=== PATIENT | male | born 1995 | race Caucasian/White ===

== ENCOUNTER 2021-05-08 00:40 | Emergency (ER) | payer OTHER ==
[2021-05-08 01:09] VITALS: BP 125/83; PULSE 79; TEMP 99; BMI 32.8
[2021-05-08] MEDS ORDERED: DIPHTH,PERTUSS(ACELL),TET 0.5 ML DISP.SYRIN IM ONE ×2 (03:58→04:09)
== END 2021-05-08 04:16 | disposition home or self-care (01) ==
LOC: JER 00:40
PROC: 0HQGXZZ Repair Left Hand Skin, External Approach (ICD-10-PCS; principal; 2021-05-08)
PROC: 3E0234Z Introduction of Serum, Toxoid and Vaccine into Muscle, Percutaneous Approach (ICD-10-PCS; 2021-05-08)
DX: S61.412A Laceration without foreign body of left hand, initial encounter (principal)
CPT/HCPCS: 12001-25; 90471; 90715; 99284-25

== ENCOUNTER 2024-08-31 14:19 | Inpatient (IN) | payer OTHER ==
[2024-08-31] MEDS: SODIUM CHLORIDE 1,000 ML IV SCH (18:11)
[2024-08-31 18:14] LABS: BASO % 0.6 % (0-2.0); EOS % 3.3 % (0-4.5); HEMATOCRIT 46.1 % (35.4-49); HEMOGLOBIN 15.4 GM/dL (11.7-16.9); LYMPH % 21.2 % (8-40); MCH 29.3 pg (25.7-33.7); MCHC 33.4 g/dl (32.0-35.9); MEAN CELL VOLUME 87.7 fl (80-96); MEAN PLT VOLUME 7.9 fl (7.5-11.1); MONO % 6.1 % (3.8-10.2); NEUT % 68.8 % (42.8-82.8); PLATELET COUNT 239 10^3/uL (134-434); RBC 5.26 M/mm3 (4.00-5.60); RDW 13.4 % (11.9-15.9)
[2024-08-31 18:20] LABS: INR 1.14 (0.83-1.09); PROTHROMBIN TIME (PATIENT) 13.1 SEC (9.7-13.0)
[2024-08-31 18:23] LABS: ACTIVATED PTT 37.2 SECONDS (25.2-36.5)
[2024-08-31 18:41] LABS: POTASSIUM 3.9 mmol/L (3.5-5.1)
[2024-08-31 18:44] LABS: ALBUMIN 4.4 g/dl (3.4-5.0); BLOOD UREA NITROGEN 11.1 mg/dL (7-18); CALCIUM 9.5 mg/dL (8.5-10.1)
[2024-08-31 18:48] LABS: CREATININE 0.7 mg/dL (0.55-1.3)
[2024-08-31 18:49] LABS: BILIRUBIN,TOTAL 0.3 mg/dL (0.2-1)
[2024-08-31 19:32] LABS: HIV INTERPRETATION NEGATIVE (NEGATIVE)
[2024-08-31 23:31] VITALS: BMI 37.8
[2024-09-01 09:22] LABS: EPI CELLS 1 /uL (0-25.1); HYALINE CASTS 0 /uL (0-3.1); PH,URINE 6.5 (5.0-8.0); URINE APPEARANCE CLEAR; URINE BACTERIA 10 /uL (0-1359); URINE BILIRUBIN NEGATIVE (NEGATIVE); URINE COLOR YELLOW; URINE GLUCOSE (UA) NEGATIVE (NEGATIVE); URINE KETONE TRACE (NEGATIVE); URINE LEUK ESTERASE NEGATIVE (NEGATIVE); URINE NITRITE NEGATIVE (NEGATIVE); URINE PROTEIN NEGATIVE (NEGATIVE); URINE RBC 46 /uL (0-23.9); URINE WBC 6 /uL (0-25.8)
[2024-09-01] MEDS ORDERED: ENOXAPARIN NA (PORCINE) 40 MG/0.4 ML DISP.SYRIN SQ SCH (10:00)
[2024-09-01] MEDS ORDERED: LIDOCAINE HCL 1%, 10 MG/ML (20ML VIAL) ONE (10:27)
[2024-09-01] MEDS ORDERED: HEPARIN NA (PORCINE) 5,000 UNITS/ML 1ML VIAL ONE (10:28)
[2024-09-01] MEDS ORDERED: BUPIVACAINE HCL/PF 0.5% (5MG/ML) 10 ML VIAL ONE (10:28)
[2024-09-01] MEDS ORDERED: PROPOFOL 40 ML ONE (10:31)
[2024-09-01] MEDS ORDERED: ROCURONIUM BROMIDE 50 MG/5 ML SYRINGE ONE (10:32)
[2024-09-01] MEDS ORDERED: MIDAZOLAM HCL 2 MG/2 ML SINGLE DOSE VIAL ONE (10:32)
[2024-09-01] MEDS ORDERED: HYDROmorphone HCl 2 MG/ML VIAL ONE (10:48)
[2024-09-01] MEDS: ceFAZolin SODIUM 1 GM VIAL IVPB ONE ×2 (10:52)
[2024-09-01 11:02] LABS: BASO % 0.8 % (0-2.0); EOS % 3.7 % (0-4.5); LYMPH % 25.4 % (8-40); MCH 29.4 pg (25.7-33.7); MCHC 33.3 g/dl (32.0-35.9); MEAN CELL VOLUME 88.3 fl (80-96); MEAN PLT VOLUME 8.6 fl (7.5-11.1); MONO % 7.4 % (3.8-10.2); NEUT % 62.7 % (42.8-82.8); PLATELET COUNT 203 10^3/uL (134-434); RBC 4.75 M/mm3 (4.00-5.60); RDW 13.3 % (11.9-15.9); WHITE BLOOD COUNT 6.9 K/mm3 (4.0-10.0)
[2024-09-01] MEDS: BUPIVACAINE HCL/PF 0.5% (5MG/ML) 10 ML VIAL IJ ONE ×2 (11:03)
[2024-09-01] MEDS: LIDOCAINE HCL 1%, 10 MG/ML (20ML VIAL) NR ONE ×2 (11:03)
[2024-09-01] MEDS ORDERED: PROPOFOL 20 ML ONE ×2 (11:05)
[2024-09-01 11:19] LABS: POTASSIUM 3.7 mmol/L (3.5-5.1)
[2024-09-01 11:28] LABS: BLOOD UREA NITROGEN 11.6 mg/dL (7-18); CALCIUM 8.7 mg/dL (8.5-10.1)
[2024-09-01 11:31] LABS: CREATININE 0.8 mg/dL (0.55-1.3); PHOSPHOROUS 2.3 mg/dL (2.5-4.9)
[2024-09-01 11:32] LABS: BILIRUBIN,TOTAL 0.6 mg/dL (0.2-1); TOT PROT 7.3 g/dl (6.4-8.2)
[2024-09-01] MEDS ORDERED: SUGAMMADEX SODIUM 200 MG/2 ML VIAL ONE (12:00)
[2024-09-01] MEDS ORDERED: ONDANSETRON 4 MG/2 ML VIAL IVPUSH PRN (12:12)
[2024-09-01] MEDS ORDERED: LACTATED RINGERS SOLUTION 1,000 ML IV SCH (13:00)
[2024-09-01] MEDS ORDERED: oxyCODONE HCL 5 MG TABLET PO PRN (13:07)
[2024-09-01 16:24] VITALS: BP 122/73; PULSE 100
[2024-09-01 16:25] VITALS: TEMP 97.9
[2024-09-01 16:26] VITALS: RESP 17
== END 2024-09-01 17:00 | disposition home or self-care (01) | DRG 228 ==
LOC: JER 14:19 → JERBED 17:41 → J6S 20:54
PROVIDERS: ADMIT Internal Medicine; ATTEND Internal Medicine
PROC: 0YU60JZ Supplement Left Inguinal Region with Synthetic Substitute, Open Approach (ICD-10-PCS; principal; 2024-09-01 10:30)
DX: K40.30 Unilateral inguinal hernia, with obstruction, without gangrene, not specified as recurrent (principal); K76.0 Fatty (change of) liver, not elsewhere classified; D72.829 Elevated white blood cell count, unspecified; R10.30 Lower abdominal pain, unspecified; K80.20 Calculus of gallbladder without cholecystitis without obstruction
CPT/HCPCS: 36415; 74177-TC; 80053; 81003; 83605; 83735; 84100; 85025; 85610; 85730; 86803; 86850; 86900; 86901; 87389; 93005; 93010; 94760; 99285-25; C1781; J1644; Q9967